=== PATIENT | male | born 2005 | race Caucasian/White ===

== ENCOUNTER 2024-07-14 21:04 | Emergency (ER) | payer MEDICAID ==
[2024-07-14] MEDS: Take Home: Codeine/guaiFENesin 100-10 MG/5 ML Syrup 5 ML, 2 Cup Pack PO ONE (22:07)
== END 2024-07-14 22:12 | disposition home or self-care (01) ==
LOC: VM.ED 21:04
DX: J06.9 Acute upper respiratory infection, unspecified (principal)
CPT/HCPCS: 87428-QW; 87651-QW; 99284; A9270-GY